=== PATIENT | female | born 1975 | race Caucasian/White ===

== ENCOUNTER 2022-08-17 09:50 | Inpatient (IN) | payer MEDICAID, OTHER ==
[~2022-08-17] VITALS: Ht 167.6 cm; Wt 112.1 kg
[2022-08-17 11:01] LABS: EOSINOPHILS % (AUTO) 1.5 % (1.0-6.0); HEMATOCRIT 41.7 % (36-46); HEMOGLOBIN 13.9 g/dL (12.0-16.0); LYMPHOCYTES # (AUTO) 2.1 K/uL (1.0-4.8); LYMPHOCYTES % (AUTO) 21.9 % (22.0-44.0); MEAN CORPUSCULAR HEMOGLOBIN 30.2 pg (26.0-34.0); MEAN CORPUSCULAR HGB CONC 33.4 G/dL (31.0-37.0); MEAN CORPUSCULAR VOLUME 90 fL (80-100); MONOCYTES # (AUTO) 0.4 K/uL (0.1-1.0); MONOCYTES % (AUTO) 4.2 % (2.0-9.0); NEUTROPHILS # (AUTO) 6.7 K/uL (1.8-7.7); NEUTROPHILS % (AUTO) 71.4 % (40.0-70.0); PLATELET COUNT (AUTO) 304 K/uL (150-450); RED BLOOD CELL COUNT(AUTO) 4.61 MIL/uL (4.00-5.20); RED CELL DISTRIBUTION WIDTH 14.7 % (11.5-14.5)
[2022-08-17 11:09] LABS: ANION GAP 9 mmol/L (8-16); CALCIUM, TOTAL 8.7 mg/dL (8.8-10.5); CARBON DIOXIDE 26 mmol/L (22-29); CHLORIDE 103 mmol/L (98-107); CREATININE 0.81 mg/dL (0.60-1.30); GLOMERULAR FILTR. RATE CALC > 60 mL/min (>60); GLUCOSE,RANDOM 125 mg/dL (70-110); POTASSIUM 4.1 mmol/L (3.5-5.1); SODIUM SERUM 138 mmol/L (136-145); UREA NITROGEN, BLOOD 12 mg/dL (7-18)
[2022-08-17 11:35] LABS: ALANINE AMINOTRANSFERASE 36 U/L (12-78); ALBUMIN 3.2 g/dL (3.4-5.0); ALKALINE PHOSPHATASE 85 U/L (46-116); ASPARTATE AMINOTRANSFERASE 20 U/L (15-37); BILIRUBIN,TOTAL 0.2 mg/dL (0.1-1.0); CREATINE KINASE, TOTAL ONLY 80 U/L (26-192); TOTAL PROTEIN, SERUM 7.4 g/dL (6.4-8.2)
[2022-08-17 14:54] LABS: COVID AG,FIA SOURCE NASAL SWAB
[2022-08-17 15:06] LABS: HCG,QUANTITATIVE < 1 mIU/mL (0-6)
[2022-08-17 17:05] LABS: AMPHET/METH SCREEN,URINE NEGATIVE (NEGATIVE); BARBITURATE SCREEN, URINE NEGATIVE (NEGATIVE); BENZODIAZEPINES SCREEN,URINE NEGATIVE (NEGATIVE); CANNABINOID SCREEN,URINE POSITIVE (NEGATIVE); COCAINE SCREEN,URINE NEGATIVE (NEGATIVE); METHADONE SCREEN, URINE NEGATIVE (NEGATIVE); OPIATE SCREEN,URINE NEGATIVE (NEGATIVE); PHENCYCLIDINE SCREEN,URINE NEGATIVE (NEGATIVE)
[2022-08-17] MEDS ORDERED: LORazepam 2 MG TABLET PO PRN (18:30)
[2022-08-17] MEDS: QUEtiapine FUMARATE 100 MG TABLET PO PRN (19:47)
[2022-08-17 23:27] VITALS: BP 154/95
[2022-08-17 23:54] LABS: APPEARANCE,URINE CLEAR (CLEAR); BILIRUBIN,URINE NEGATIVE (NEGATIVE); GLUCOSE, URINE (UA) NEGATIVE (NEGATIVE); KETONES,URINE NEGATIVE (NEGATIVE); LEUKOCYTE ESTERASE ,URINE MODERATE (NEGATIVE); NITRATE,URINE NEGATIVE (NEGATIVE); OCCULT BLOOD,URINE MODERATE (NEGATIVE); PROTEIN,URINE NEGATIVE (NEGATIVE); UROBILINOGEN,URINE <=1.0 mg/dL (<=1.0)
[2022-08-18] VITALS: BP 154/95
[2022-08-18 00:02] LABS: BACTERIA,URINE Moderate /HPF (None Seen); RBC,URINE 0-2 /HPF (0-2); SQUAMOUS EPITHELIAL CELL,UR Few /LPF (None Seen)
[2022-08-18] MEDS: ZOLPIDEM TARTRATE 10 MG TABLET PO PRN ×2 (00:06→21:20)
[2022-08-18] MEDS: QUEtiapine FUMARATE 100 MG TABLET PO PRN ×3 (00:06→21:20)
[2022-08-18 00:12] VITALS: BP 154/95
[2022-08-18 08:59] VITALS: BP 132/94
[2022-08-18] MEDS ORDERED: QUET200T30 PO (12:57)
[2022-08-18] MEDS ORDERED: QUET25TA36 PO (12:57)
[2022-08-18] MEDS ORDERED: SERT-440 PO (12:57)
[2022-08-18] MEDS: SERTRALINE HCL 100 MG TABLET PO SCH (13:09)
[2022-08-18] MEDS: QUEtiapine FUMARATE 300 MG TABLET PO SCH (13:14)
[2022-08-18] MEDS ORDERED: DOCUSATE SODIUM 100 MG CAPSULE PO PRN (13:30)
[2022-08-18] MEDS ORDERED: GuaiFENesin/D-METHORPHAN [SUGAR-FREE] 200-20MG/10 ML SYRUP UDCUP PO PRN (13:30)
[2022-08-18] MEDS ORDERED: IBUPROFEN 400 MG TABLET PO PRN (13:30)
[2022-08-18] MEDS ORDERED: PETROLATUM,WHITE 28 GM JELLY TP PRN (13:30)
[2022-08-18] MEDS ORDERED: ALBUTEROL SULFATE HFA 90 MCG/PUFF 8 GM INHALER IH PRN (13:30)
[2022-08-18] MEDS ORDERED: ONDANSETRON HCL 4 MG TABLET PO PRN (13:30)
[2022-08-18] MEDS ORDERED: MAG HYDROX/AL HYDROX/SIMETH ES 30 ML SUSPENSION UDCUP PO PRN (13:30)
[2022-08-18] MEDS ORDERED: LOPERAMIDE HCL 2 MG CAPSULE PO PRN (13:30)
[2022-08-18] MEDS ORDERED: ACETAMINOPHEN 325 MG TABLET PO PRN (13:30)
[2022-08-18] MEDS ORDERED: NICOTINE 14 MG/24 HOUR PATCH TD PRN (13:30)
[2022-08-18] MEDS ORDERED: MAGNESIUM HYDROXIDE SUSPENSION 30 ML UDCUP PO PRN (13:30)
[2022-08-18] MEDS ORDERED: CloNIDine HCL 0.1 MG TABLET PO PRN (13:30)
[2022-08-18 17:00] VITALS: BP 140/90
[2022-08-18 21:23] VITALS: BP 128/76
[2022-08-19] MEDS: QUEtiapine FUMARATE 300 MG TABLET PO SCH (08:55)
[2022-08-19] MEDS: SERTRALINE HCL 100 MG TABLET PO SCH (08:55)
[2022-08-19 10:16] VITALS: BP 136/99
[2022-08-19 16:32] VITALS: BP 127/84
[2022-08-19 16:33] VITALS: BP 127/84
[2022-08-19] MEDS: QUEtiapine FUMARATE 100 MG TABLET PO PRN (20:45)
[2022-08-19] MEDS: ZOLPIDEM TARTRATE 10 MG TABLET PO PRN (20:45)
[2022-08-19 20:51] VITALS: BP 139/98
[2022-08-20] MEDS: SERTRALINE HCL 100 MG TABLET PO SCH (08:32)
[2022-08-20] MEDS: QUEtiapine FUMARATE 300 MG TABLET PO SCH (08:32)
[2022-08-20 11:03] VITALS: BP 152/83
[2022-08-20 16:17] VITALS: BP 148/87
[2022-08-20 21:42] VITALS: BP 158/97
[2022-08-20 22:27] VITALS: BP 141/88
[2022-08-20] MEDS: ZOLPIDEM TARTRATE 10 MG TABLET PO PRN (23:01)
[2022-08-21] MEDS: CEPHALEXIN MONOHYDRATE 500 MG CAPSULE PO SCH ×2 (08:49→16:26)
[2022-08-21] MEDS: QUEtiapine FUMARATE 300 MG TABLET PO SCH (08:49)
[2022-08-21] MEDS: SERTRALINE HCL 100 MG TABLET PO SCH (08:51)
[2022-08-21 10:30] VITALS: BP 153/92
[2022-08-21 16:54] VITALS: BP 151/98
[2022-08-21 21:00] VITALS: BP 160/99
[2022-08-21] MEDS: QUEtiapine FUMARATE 100 MG TABLET PO PRN (21:59)
[2022-08-21] MEDS: ZOLPIDEM TARTRATE 10 MG TABLET PO PRN (21:59)
[2022-08-21 22:48] VITALS: BP 160/99
[2022-08-22] MEDS: SERTRALINE HCL 100 MG TABLET PO SCH (08:35)
[2022-08-22] MEDS: CEPHALEXIN MONOHYDRATE 500 MG CAPSULE PO SCH ×2 (08:35→16:01)
[2022-08-22] MEDS: QUEtiapine FUMARATE 300 MG TABLET PO SCH (08:35)
[2022-08-22 09:53] VITALS: BP 158/100
[2022-08-22 16:25] VITALS: BP 133/83
[2022-08-22 21:49] VITALS: BP 147/93
[2022-08-23] MEDS: ZOLPIDEM TARTRATE 10 MG TABLET PO PRN ×2 (00:30→21:07)
[2022-08-23 06:56] LABS: COVID AG,FIA SOURCE NASAL SWAB
[2022-08-23 10:37] VITALS: BP 142/92
[2022-08-23] MEDS: SERTRALINE HCL 100 MG TABLET PO SCH (11:37)
[2022-08-23] MEDS: CEPHALEXIN MONOHYDRATE 500 MG CAPSULE PO SCH ×2 (11:39→18:19)
[2022-08-23] MEDS: QUEtiapine FUMARATE 300 MG TABLET PO SCH (11:39)
[2022-08-23] MEDS ORDERED: SERT-162 PO (12:17)
[2022-08-23] MEDS ORDERED: CEPH-558 PO (12:17)
[2022-08-23] MEDS ORDERED: QUET300T2 PO (12:17)
[2022-08-23 16:00] VITALS: BP 138/87
[2022-08-23 20:40] VITALS: BP 147/90
[2022-08-24] MEDS: QUEtiapine FUMARATE 300 MG TABLET PO SCH (09:00)
[2022-08-24] MEDS: SERTRALINE HCL 100 MG TABLET PO SCH (09:00)
[2022-08-24] MEDS: CEPHALEXIN MONOHYDRATE 500 MG CAPSULE PO SCH ×2 (09:00→17:43)
[2022-08-24 10:00] VITALS: BP 153/94
[2022-08-24 16:16] VITALS: BP 131/81
[2022-08-24] MEDS: ZOLPIDEM TARTRATE 10 MG TABLET PO PRN (20:51)
[2022-08-24] MEDS: QUEtiapine FUMARATE 100 MG TABLET PO PRN (20:51)
[2022-08-24 21:30] VITALS: BP 145/90
[2022-08-25] MEDS: CEPHALEXIN MONOHYDRATE 500 MG CAPSULE PO SCH ×2 (09:14→17:30)
[2022-08-25] MEDS: QUEtiapine FUMARATE 300 MG TABLET PO SCH (09:14)
[2022-08-25] MEDS: SERTRALINE HCL 100 MG TABLET PO SCH (09:14)
[2022-08-25 10:21] VITALS: BP 149/99
[2022-08-25] MEDS ORDERED: QUET300T19 PO (15:43)
[2022-08-25] MEDS ORDERED: SERT-440 PO (15:43)
[2022-08-25 16:58] VITALS: BP 149/94
== END 2022-08-25 18:11 | disposition home or self-care (01) | DRG 753 ==
LOC: EMS 10:02 → 3EI 20:15
PROVIDERS: ADMIT Psychiatry & Neurology Psychiatry; ATTEND Psychiatry & Neurology Psychiatry
DX: F31.4 Bipolar disorder, current episode depressed, severe, without psychotic features (principal); R45.851 Suicidal ideations; E66.9 Obesity, unspecified; F10.10 Alcohol abuse, uncomplicated; F12.10 Cannabis abuse, uncomplicated; F43.12 Post-traumatic stress disorder, chronic; R73.9 Hyperglycemia, unspecified; R07.89 Other chest pain; G47.00 Insomnia, unspecified; F41.9 Anxiety disorder, unspecified; Z20.822 Contact with and (suspected) exposure to COVID-19; Z79.899 Other long term (current) drug therapy; Z68.39 Body mass index [BMI] 39.0-39.9, adult
CPT/HCPCS: 71045; 80053; 80307; 81001; 82550; 84484; 84702; 85025; 87086; 87186; 93005; 99285; G0480; 36415-L1; 36415-TC